=== PATIENT | male | born 1985 | race American Indian/Alaskan Native ===

== ENCOUNTER 2017-12-15 10:44 | Emergency (ER) | payer SELFPAY ==
[2017-12-15 13:09] VITALS: BP 129/47
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
== END 2017-12-15 13:56 | disposition home or self-care (01) ==
LOC: ED 10:44
DX: M79.662 Pain in left lower leg (principal)
CPT/HCPCS: 99282